=== PATIENT | female | born 1960 | race Caucasian/White ===

== ENCOUNTER 2025-03-24 12:48 | Outpatient (AMB) | payer MEDICAID, SELFPAY ==
--- OUTSIDE RECORDS SUMMARY | 2025-03-20 16:03 | XMS_ITS | Encounter Summary ---
Author Organization [facility] Address [address] [place] [address] Phone Care Team Providers Care Director Clinical Pharmacology Name Role Phone Marck Tran MD Primary Care Provider + [phone] Reason for Referral * MRI/CAT Scan - Closed Specialty Diagnoses / Procedures Referred By Alhaji carl Referred To Contact Radiology Diagnoses Status post abdominal aortic aneurysm repair Venous aneurysm Procedures CT Angio Abdomen/Pelvis SC CT ANGIO ABD&PLVIS CNTRST MTRL W/WO Travis Jack MD Phone: tel: fax: mailto:[email or web address] Referral ID Status Reason Start Date Expiration Date Visits Re quested Visits Authorized [id number] Closed 03/06/2025 03/06/2026 1 1 Reason for Visit * MRI/CAT Scan - Closed Specialty Diagnoses / Procedures Referred By Alhaji carl Referred To Contact Radiology Diagnoses Status post abdominal aortic aneurysm repair Venous aneurysm Procedures CT Angio Abdomen/Pelvis SC CT ANGIO ABD&PLVIS CNTRST MTRL W/WO MANJULAT Travis Marvin MD Phone: tel: fax: mailto:[email or web address] Referral ID Status Reason Start Date Expiration Date Visits Re quested Visits Authorized [id number] Closed 03/06/2025 03/06/2026 1 1 Encounter Details Date Type Department Care Team (Latest Contact Info) Description 03/20/2025 4:03 PM EDT - 03/20/2025 11:59 PM EDT Hospital Encounter [facility], Ct Scan - [address] [address] Travis Malhotra MD [address] [place] [phone] [email or web address] Discharge Disposition: Home or Self Care Social History Tobacco Use Types Packs/Day Years Used Date Smoking Tobacco: Never Assessed Education Answer Date Recorded Are you interested in more education? Not on mendez e 09/29/2022 Are you concerned about learning? Not on file 09/29/2022 No 09/29/2022 No 09/29/2022 Digital Access Answer Date Recorded No 10/28/2022 No 10/28/2022 No 10/28/2022 Reliable internet access at home? Not on file 10/28/2022 Device with a working camera? Not on file Intimate Partner Violence Answer Date R ecorded Are you denied basic needs s uch as food, clothing, or medical care? No 01/12/2025 In the past 12 months have y ou been in a relationship with a person who hurts, threatens, or tries to control you? No 01/12/2025 Are you denied basic needs s uch as food, clothing, or medical care? No 01/12/2025 In the past 12 months have y ou been in a relationship with a person who hurts, threatens, or tries to control you? No 01/12/2025 Comments Unknown Sex and Gender Information Value Date Recorded Sex Assigned at Female 04/29/2022 4:27 PM EST Legal Sex Female 9:45 PM EDT Gender Identity Female 04/29/2022 4:27 PM EST Sexual Orientation Straight 04/29/2022 4: 27 PM EST documented as of this encounter Plan of Treatment Upcoming Encounters Date Type Department Care Team (Late st Contact Info) Description 2025 11:15 AM EST Telemedicine - audio only [facility] V[facility] Surgery [address] [place] [address] Travis Malhotra MD [address] [place] [phone] [email or web address] [email or web address] Results Name Type Priority Associated Diagnoses Date /Time CT Angio Abdomen/Pelvis Imaging Routine Status post abdominal aortic aneurysm repair Venous aneurysm 03/20/2025 5:02 PM EDT Scheduled Orders Name Type Priority Associated Diagnoses Orde r Schedule CT Angio Abdomen/Pelvis Imaging Routine Status post abdominal aortic aneurysm repair Venous aneurysm As Needed for 1 Occurrences starting 03/20/2025 until 03/20/2025 documented as of this encounter Visit Diagnoses Diagnosis Status post abdominal aortic aneurysm repair Other postprocedural status Venous aneurysm documented in this encounter Administered Medications Inactive Administered Medications - up to 3 most recent administrations Medication Order MAR Action Action Date Dose Rate Site iohexoL (OMNIPAQUE-350) 350 mg iodine/mL solution 25-125 mL 25-125 mL, Intravenous, Once as needed, pre procedure/treatment, Starting on Sun03/20/25 at 1702, For 1 dose, Procedural Contrast/Med Active Now, Each mL contains 755 mg of iohexol equivalent to 350 mg of organic iodine. Given 03/20/2025 5:03 PM EDT 100 mL documented in this encounter Care Teams Director Clinical Pharmacology Relationship Specialty Start Date End Date Marck Tran MD [address] [place] [phone] PCP - General Family Medicine 01/15/19 documented as of this encounter Additional Source Comments The information contained in this document represents components of the legal health record. It is not the complete legal health record.[facility]
--- NOTE | 2025-03-24 13:05 | A.OFFVIS_ITS ---
Intake Visit Reasons: Nephrolithiasis Intake Note: patient presents today for: new pt nephrolithiasis urology medications: none blood thinners: none CT done: 01/08/25 Portable Track Crew Chief Required: No Accompanied by: Self / Same As Patient Allergies No Known Allergies Allergy (Verified 03/24/25 13:07) HPI Comments Details: Joseline is a pleasant female. She is a patient of Dr. Tran. She is seen for the following urologic conditions. - nephrolithiasis Review follow-up CT scan Right stone has passed Small stone left side Dietary advice given to stop nuts and almond milk Vitamin B6 Nephrolithiasis Presentation to [facility] ER 01/26 Distal right ureteric stone Associated UTI Review of Systems Const Denies chills and Denies fever(s) Card Reports no additional complaints and Denies syncope Resp Denies cough GI Denies abdominal pain and Denies heartburn Reports as per HPI and Denies change in libido Neuro Denies syncope Psych Denies change in libido Endo Denies change in libido Physical Exam Const General: cooperative, healthy appearing, comfortable and no acute distress Orientation/consciousness: patient oriented x3 HEENT Face and sinus: Yes normal facial exam Mouth: moist mucous membranes Neck Neck: Yes normal visual inspection, Yes full ROM and Yes trachea midline Chest Chest palpation & inspection: normal inspection of the chest Resp Effort & Inspection: normal respiratory effort, able to speak in complete sentences and no respiratory distress GI Inspection: Yes normal to inspection Back/Spine/Pelvis Cervical Spine: normal cervical lordosis Thoracic/Lumbar Spine: thoracic and lumbar spine normal to inspection Skin General skin exam: no rashes or lesions noted Neuro General: patient oriented x3, gait normal, tone normal and moves all extremities Extrem General: Yes normal to inspection and Yes capillary refill normal Results AMB Urinalysis, Automated UA Leukoctes 0 Renetta/uL Last Edit by CHRISTY Meade on 03/24/25 13:19 UA Nitrite Last Edit by CHRISTY Meade on 03/24/25 13:19 UA Urobilinogen 0.2 mg/dL Last Edit by CHRISTY Meade on 03/24/25 13:1 9 UA Protein 0 mg/dL Last Edit by CHRISTY Meade on 03/24/25 13:19 UA pH 6.5 Last Edit by CHRISTY Meade on 03/24/25 13:19 UA Blood 10 Darrel/uL Last Edit by CHRISTY Meade on 03/24/25 13:19 UA Specific [place] 1.010 Last Edit by CHRISTY Meade on 03/24/25 13: 19 UA Ketone Last Edit by CHRISTY Meade on 03/24/25 13:19 UA Bilirubin 0 mg/dL Last Edit by CHRISTY Meade on 03/24/25 13:19 UA Glucose 0 mg/dL Last Edit by CHRISTY Meade on 03/24/25 13:19 Results Reviewed Results Reviewed: Laboratory Last Values Urine pH (Auto) 6.5 03/24/25 13:18 Specific [place] (Auto) 1.010 03/24/25 13:18 Urine Protein (Auto) 0 mg/dL 03/24/25 13:18 Glucose (UA)(Auto) 0 mg/dL 03/24/25 13:18 Urine Blood (Auto) 10 Darrel/uL 03/24/25 13:18 Urine Bilirubin (Auto) 0 mg/dL 03/24/25 13:18 Urine Urobilinogen (Auto) 0.2 mg/dL 03/24/25 13:18 Leukocyte Esterase (Auto) 0 Renetta/uL 03/24/25 13:18 Assessment & Plan Assessment & Plan (1) Nephrolithiasis: Code(s): N20.0 - Calculus of kidney Category: Medical Plan Vitamin B6 Six-month follow-up image Orders: Orders US renal BI 6 Months N20.0 - Calculus of kidney AMB Urinalysis Automated Today Z13.9 - Encounter for screening, unspecified Medications: New pyridoxine (vitamin B6) 50 mg PO DAILY 90 tabs 1RF 90 days N20.0 - Calculus of kidney Patient Instructions: This note is constructed using voice recognition software. While every effort has been made to ensure accuracy transition teacher errors may have been included. Imaging studies, laboratory and physical exam results were discussed and reviewed in detail. No major barriers to patient understanding were identified. An opportunity to ask questions regarding the treatment plan was provided. All questions were answered. The patient expressed understanding and agreement with the above treatment plan. The patient is aware they should contact our office by phone for worsening of their current condition or the appearance of new urologic symptoms. Compliance is encouraged with any medications and followup testing that is ordered. It is a privilege to participate in the urologic care of your patient. If you have any questions or concerns regarding treatment for the above conditions, or other urologic issues, please do not hesitate to contact me. The office telephone contact is [phone]. Sincerely, Dr Dane Muniz MD, [facility] - Urology Compassionate Specialist Care for the Genitourinary System Coding Level of Care Code New Pt Level 3 (19865) Diagnoses Nephrolithiasis N20.0
--- OUTSIDE RECORDS SUMMARY | 2025-03-24 16:23 | XMS_ITS | Encounter Summary ---
Author Organization [facility] Address [address] [place] [address] Phone Care Team Providers Care Splitting Machine Operator Helper Name Role Phone Marck Tran MD Primary Care Provider + [phone] Encounter Details Date Type Department Care Team (Late st Contact Info) Description 02/23/2025 Procedure Pass [facility], Ct Scan - [address] [address] Social History Tobacco Use Types Packs/Day Years [...] 11:15 AM EST Telemedicine - audio only [facility] Vascular Surgery [address] [place] [address] Travis Malhotra MD [address] [place] [address] [email or web address] documented as of this encounter Visit Diagnoses Not on filedocumented in this encounter Care Teams Splitting Machine Operator Helper Relationship Specialty Start Date End Date Marck Tran MD [address] [place] [id number] PCP - General Family Medicine 01/15/19 documented as of this encounter Additional Source Comments The information contained in this document represents components of the legal health record. It is not the complete legal health record.[facility]
--- OUTSIDE RECORDS SUMMARY | 2025-03-24 16:23 | XMS_ITS | Encounter Summary ---
Author Organization [facility] Address [address] [place] [address] Phone Care Team Providers Care Orchestra Leader Name Role Phone Marck Tran MD Primary Care Provider + [phone] Encounter Details Date Type Department Care Team (Late st Contact Info) Description 01/08/2025 Procedure Pass [facility], Ct Scan - [address] [address] Social History Tobacco Use Types Packs/Day Years [...] PM EST documented as of this encounter Functional Status * Calculated C-SSRS Risk Score (Lifetime/Recent) Answer Date of Assessment Author No Risk Indicated 01/08/2025 3:40 PM EDT Tayler Rea RN * [place] Suicide Severity Rating Scale (Screener/Recent Self-Report) Question Answer Date of Assessment Author 1. Wish to be (Past 1 Month) No 025 3:40 PM EDT Tayler Rea RN 2. Non-Specific Active Suici larry Thoughts (Past 1 Month) No 01/08/2025 3:40 PM EDT Tayler Rea RN 6. Suicidal Behavior (Lifetime) No 3:40 PM EDT Tayler Rea RN documented as of this encounter Plan of Treatment Upcoming Encounters Date Type Department Care Team (Late st Contact Info) Description 2025 11:15 AM EST Telemedicine - audio only [facility] Vascular Surgery [address] [place] [address] Travis Malhotra MD [address] [place] [address] [email or web address] documented as of this encounter Visit Diagnoses Not on filedocumented in this encounter Care Teams Orchestra Leader Relationship Specialty Start Date End Date Marck Tran MD [address] [place] [phone] PCP - General Family Medicine 01/15/19 documented as of this encounter Additional Source Comments The information contained in this document represents components of the legal health record. It is not the complete legal health record.[facility]
--- OUTSIDE RECORDS SUMMARY | 2025-03-24 16:23 | XMS_ITS | Clinical Summary ---
Author Organization [facility] Address [address] [place] [address] [place] [phone] Phone Care Team Providers Care Industrial Commercial Groundskeeper Name Role Phone Marck Tran MD Primary Care Provider [phone] Allergies Active Allergy Reactions Criticality Noted Date Comments Sulfa (Sulfonamide Antibiotics) 12/2024 Medications No known medications Active Problems Problem Noted Date Diagnosed Date Sacroiliitis, not elsewhere classified 9 Encounters Date Type Department Care Team Description 03/20/2025 4:03 PM EDT - 03/20/2025 11:59 PM EDT Hospital Encounter [address] [address] Travis Malhotra MD Discharge Disposition: Home or Self Care 02/23/2025 Procedure Pass [address] [address] 02/23/2025 Orders Only [facility] [address] [place] [phone] Fanny Ann Status post abdominal aortic aneurysm repair (Primary Dx); Venous aneurysm 02/23/2025 Orders Only [facility] [address] [place] [phone] Fanny Ann 02/13/2025 3:45 PM EDT Office Visit [facility] [address] [place] [phone] Travis Malhotra MD Venous aneurysm (Primary Dx) 01/12/2025 6:37 PM EDT - 01/12/2025 11:34 PM EDT Emergency [facility] [address] [place] [address] Discharge Disposition: Left Without Being Seen 01/08/2025 7:24 PM EDT - 01/09/2025 1:33 AM EDT Emergency [facility] [address] [place] [address] Parker Wilson MD Discharge Disposition: Left Against Medical Advice 01/08/2025 Procedure Pass [facility], Ct Scan - [facility] [address] [place] [address] from Last 3 Months Social History Tobacco Use Types Packs/Day Years [...] Orientation Straight 04/29/2022 4: 27 PM EST Last Filed Vital Signs Vital Sign Reading Time Taken Comments Blood Pressure 168/78 02/13/2025 3:34 PM EDT Pulse 75 02/13/2025 3:34 PM EDT Temperature 36.3 C (97.3 F) 01/12/2025 6:46 PM EDT Respiratory Rate 18 01/12/2025 6:46 PM EDT Oxygen Saturation 98% 01/12/2025 6:46 PM EDT Inhaled Oxygen Concentration - - Weight 72.6 kg (160 lb) 01/12/2025 6:46 PM EDT Height 172.7 cm (5' 8 ) 01/12/2025 6:46 PM EDT Body Mass Index 24.33 01/12/2025 6:46 PM EDT Plan of Treatment Upcoming Encounters Date Type Department Care Team (Late st Contact Info) Description 2025 11:15 AM EST Telemedicine - audio only [facility] [address] [place] [address] Travis Malhotra MD [address] [place] [address] [email or web address] Health Maintenance Due Date Last Done Comments Adult Td,Tdap Booster 1962 LIPID PANEL 1962 DEPRESSION SCREENING 1974 SMOKING Hx and SMOKELESS TOB ACCO SCREENING 1975 HEPATITIS C SCREENING 1980 HIV ONE-TIME SCREENING (18-6 5 YEARS) 1980 PAP SMEAR 1983 MAMMOGRAM 2002 COLOGUARD 2007 COLONOSCOPY 2007 COLORECTAL CANCER SCREENING 2007 FIT TEST 2007 FOBT 2007 SIGMOIDOSCOPY 2007 VIRTUAL COLONOSCOPY 2007 PNEUMOCOCCAL VACCINES (50+ y ears) (1 of 1 - PCV) 2012 ZOSTER VACCINES (1 of 2) 2012 INFLUENZA VACCINE (#1) 2025 COVID-19 VACCINE (2 - 2024-2 6 season) 2025 09/14/2020 RSV VACCINE (1 - 1-dose 75+ series) 2037 HEPATITIS A VACCINES Aged Out No long er eligible based on patient's age to complete this topic HIB VACCINES Aged Out No longer eligi ble based on patient's age to complete this topic MENINGOCOCCAL VACCINES (ACWY) Aged Out No longer eligible based on patient's age to complete this topic MENINGOCOCCAL VACCINES (B) Aged Out N o longer eligible based on patient's age to complete this topic Medical Devices Not on file Procedures Procedure Name Priority Date/Time Associated Diagnosis Comments CT ABDOMEN/PELVIS WITH CONTRAST Routine 01/08/2025 9:24 PM EDT LFTS (HEPATIC PANEL) STAT 01/08/2025 7:50 PM EDT BASIC METABOLIC PANEL STAT 01/08/2025 7:50 PM EDT CBC AND DIFFERENTIAL STAT 01/08/2025 7:50 PM EDT URINE SEDIMENT STAT 01/08/2025 3:40 PM EDT URINALYSIS W/REFLEX URINE CULTURE STAT 01/08/2025 3:40 PM EDT URINE CULTURE Routine 01/08/2025 3:40 PM EDT from Last 3 Months Results * CT ABDOMEN/PELVIS WITH CONTRAST (01/08/2025 9:24 PM EDT) Anatomical Region Laterality Modality Abdomen, Pelvis Computed Tomogra phy 01/08/2025 10:2 1 PM EDT Impressions 01/08/2025 10:26 PM EDT 1. Mild to moderate right hydroureteronephrosis secondary to a 3 mm UVJ stone. Associated distal ureteritis is likely reactive. 2. Nonobstructing left nephrolithiasis. 3. 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 Narrative 01/08/2025 10:[address] ABDOMEN/PELVIS WITH CONTRAST Referring clinician's provided indication for this examination in Epic: * Abdominal pain, acute, nonlocalized TECHNIQUE: CT of the abdomen and pelvis was performed after administration of intravenous contrast using tailored dose modulation techniques. Images were reconstructed in the axial, coronal, and sagittal planes. COMPARISON: None FINDINGS: Lower Chest: No consolidation or effusions. Liver: No focal lesions. Biliary: Noninflamed gallbladder without radiopaque stones. No biliary ductal dilatation. Spleen: Normal. No splenomegaly. Pancreas: No ductal dilatation, peripancreatic fluid, or stranding. Adrenal Glands: No nodules. Kidneys/Ureters: Mild to moderate right hydroureteronephrosis secondary to a 3 mm stone at the ureterovesical junction with delayed nephrogram, trace perinephric/periureteral stranding, and distal ureteral urothelial enhancement. Nonobstructing left 3 mm lower pole renal stone. No left-sided hydronephrosis. Small right renal cysts. Bowel: Normal appendix. No bowel obstruction or wall thickening. Peritoneum/Retroperitoneum: No pneumoperitoneum or fluid. Lymph Nodes: No lymphadenopathy. Pelvic Organs/Bladder: No mass. Vessels: No abdominal aortic aneurysm. Mild atherosclerosis. 2.7 x 3.2 cm partially thrombosed saccular aneurysm arising from a branch of the SMV. Patent portal vein. Bones/Soft Tissues: No destructive osseous lesions. Small fat-containing umbilical hernia. Procedure Note Miranda Brooks MD - 01/08/2025 CT ABDOMEN/PELVIS WITH CONTRAST Referring clinician's provided indication for this examination in Epic: *Abdominal pain, acute, nonlocalized TECHNIQUE: CT of the abdomen and pelvis was performed after administrationof intravenous contrast using tailored dose modulation techniques. Imageswere reconstructed in the axial, coronal, and sagittal planes. COMPARISON: None FINDINGS: Lower Chest: No consolidation or effusions. Liver: No focal lesions. Biliary: Noninflamed gallbladder without radiopaque stones. No biliaryductal dilatation. Spleen: Normal. No splenomegaly. Pancreas: No ductal dilatation, peripancreatic fluid, or stranding. Adrenal Glands: No nodules. Kidneys/Ureters: Mild to moderate right hydroureteronephrosis secondary toa 3 mm stone at the ureterovesical junction with delayed nephrogram, traceperinephric/periureteral stranding, and distal ureteral urothelialenhancement. Nonobstructing left 3 mm lower pole renal stone. Noleft-sided hydronephrosis. Small right renal cysts. Bowel: Normal appendix. No bowel obstruction or wall thickening. Peritoneum/Retroperitoneum: No pneumoperitoneum or fluid. Lymph Nodes: No lymphadenopathy. Pelvic Organs/Bladder: No mass. Vessels: No abdominal aortic aneurysm. Mild atherosclerosis. 2.7 x 3.2 cmpartially thrombosed saccular aneurysm arising from a branch of the SMV.Patent portal vein. Bones/Soft Tissues: No destructive osseous lesions. Small fat- containingumbilical hernia. IMPRESSION: 1. Mild to moderate right hydroureteronephrosis secondary to a 3 mm UVJstone. Associated distal ureteritis is likely reactive. 2. Nonobstructing left nephrolithiasis. 3. Partially thrombosed 3 cm saccular aneurysm arising from a branch ofthe SMV. Saray Rodgers PA-C IMG CT ABD/PELVIS Final Result * LFTs (hepatic panel) (01/08/2025 7:50 PM EDT) ALKALINE PHOSPHATASE 59 39 - 117 U/L [facility] TOTAL BILIRUBIN 0.7 0.0 - 1.2 mg/dL [facility] DIRECT BILIRUBIN 0.2 0.0 - 0.2 mg/dL [facility] Bilirubin (Indirect) 0.5 0 - 1.5 mg/dL [facility] AST 23 0 - 37 U/L [facility] ALT 26 0 - 40 U/L [facility] TOTAL PROTEIN 7.3 6.5 - 8.0 g/dL [facility] ALBUMIN 4.4 3.9 - 4.8 g/dL [facility] GLOBULIN 2.9 1 - 4.8 g/dL [facility] A/G Ratio 1.52 1.00 - 4.80 RATIO [facility] Blood 01/08/2025 7:50 PM EDT 01/08/2025 8:22 PM EDT Saray Rodgers PA-C LAB BLOOD ORDERABLES Fi nal Result [facility] [address] [place] [address] * CBC and differential (01/08/2025 7:50 PM EDT) WBC 9.39 4.00 - 11.00 K/uL [facility] RBC 4.31 4.00 - 5.20 M/uL [facility] HGB 13.0 12.0 - 16.0 g/dL [facility] HCT 40.0 36.0 - 46.0 % [facility] PLT 229 150 - 450 K/uL [facility] MCV 92.8 80.0 - 100.0 fL [facility] MCH 30.2 27.0 - 31.0 pg [facility] MCHC 32.5 32.0 - 36.0 g/dL [facility] RDW 12.9 11.5 - 14.5 % [facility] MPV 10.1 8.4 - 12.0 fL [facility] NRBC 0.00 0.00 /100 WBCs [facility] ABSOLUTE NRBC 0.00 0.00 K/uL [facility] DIFF METHOD Auto [facility] NEUTS 66.9 48.0 - 76.0 % [facility] LYMPHS 25.0 18.0 - 41.0 % [facility] MONOS 6.3 4.0 - 11.0 % [facility] EOS 1.0 0.0 - 5.0 % [facility] BASOS 0.5 0.0 - 1.5 % [facility] Granulocytes, immature (%) 0.3 0.0 - 0.9 % [facility] ABSOLUTE NEUTS 6.28 1.92 - 7.60 K/uL [facility] ABSOLUTE LYMPHS 2.35 0.72 - 4.10 K/uL [facility] ABSOLUTE MONOS 0.59 0.16 - 1.10 K/uL [facility] ABSOLUTE EOS 0.09 0.00 - 0.50 K/uL [facility] ABSOLUTE BASOS 0.05 0.00 - 0.15 K/uL [facility] Granulocytes, immature 0.03 0.00 - 0.09 K/uL [facility] Blood 01/08/2025 7:50 PM EDT 01/08/2025 8:22 PM EDT us Saray Rodgers PA-C LAB BLOOD ORDERABLES Fi nal Result [facility] [address] [place] [address] * (ABNORMAL) Basic metabolic panel (01/08/2025 7:50 PM EDT) SODIUM 141 133 - 146 mmol/L [facility] CHLORIDE 108 96 - 108 mmol/L [facility] POTASSIUM 4.0 3.3 - 5.1 mmol/L [facility] CO2 22 21 - 35 mmol/L [facility] BUN 23(H) 6 - 19 mg/dL [facility] CREATININE 1.00 0.5 - 1.5 mg/dL [facility] GLUCOSE 88 70 - 99 mg/dL [facility] CALCIUM 9.9 8.4 - 10.3 mg/dL [facility] EGFR 64 >59 mL/min/1.7 3m2 [facility] Comment:Estimated glomerular filtration rate calculated using the CKD-EPI refit equation. ANION GAP 15 10 - 20 mmol/L [facility] Blood 01/08/2025 7:50 PM EDT 01/08/2025 8:22 PM EDT us Saray Rodgers PA-C LAB BLOOD ORDERABLES Fi nal Result [address] [address] * (ABNORMAL) Urinalysis w/reflex Urine Culture (01/08/2025 3:40 PM EDT) COLOR Yellow Yellow [facility] CLARITY Clear [facility] GLUCOSE Negative Negative [facility] BILI Negative Negative [facility] KETONES 1+(A) Negative [facility] SPECIFIC GRAVITY >1.030 1.005 - 1.030 [facility] BLOOD 2+(A) Negative [facility] PH 5.5 5.0 - 8.0 [facility] Protein-UA Negative Negative [facility] NITRITE Negative Negative [facility] Leukocyte esterase, ur Negative Negative [facility] Urine (Urine) 01/08/2025 3:4 0 PM EDT 01/08/2025 3:46 PM EDT us Merle Emerson PA-C URINE ORDERABLES Final Resu lt Performing Organization Address City/[facility]/ZIP Co de Phone Number [address] [address] * Urine Culture (01/08/2025 3:40 PM EDT) Special Requests None 01/08/2025 8:36 PM EDT [facility] Urine Culture NO GROWTH 48HRS 01/10/2025 11:01 AM EDT [facility] Urine 01/08/2025 3:40 PM EDT 01/08/2025 8:35 PM EDT us Saray Rodgers PA-C MICROBIOLOGY - GENERAL ORDERABLES Final Result Performing Organization Address [facility] Co de Phone Number [address] [address] * (ABNORMAL) Urine sediment (01/08/2025 3:40 PM EDT) WBC 5-10(A) NONE SEEN /hpf [facility] RBC 3-5(A) NONE SEEN /hpf [facility] URINE EPITHELIAL 0-4(A) NONE SEEN [facility] MUCUS Trace(A) NONE SEEN /hpf [facility] BACTERIA Trace(A) NONE SEEN /hpf [facility] CRYSTALS 2+ [facility] Comment:Calcium Oxalate 01/08/2025 3:40 PM EDT 01/08/2025 3:46 PM EDT us Merle Emerson PA-C URINE ORDERABLES Final Resu lt Performing Organization Address [facility]/ZIP Co de Phone Number [address] [phone] from Last 3 Months Insurance [facility] [address] [place] [address] [place] [address] [facility] Member Subscriber Plan / Payer ([facility]Present[facility] Name:Willamanda Joseline Relation to Subscriber:Self Name:Joseline Hannah Payer ID:[id number] Group ID:Not on file Type:Medicaid Address: [address] [address] Care Teams Industrial Commercial Groundskeeper Relationship Specialty Start Date End Date Marck Tran MD [address] [place] [id number] PCP - General Family Medicine 8/14/19 Additional Source Comments The information contained in this document represents components of the legal health record. It is not the complete legal health record.[facility]
== END 2025-03-24 14:07 | disposition home or self-care (01) ==
LOC: HO.HUSH 12:49
PROVIDERS: PCP Family Medicine; Visit Provider Urology
DX: Z13.9 Encounter for screening, unspecified (principal); N20.0 Calculus of kidney
CPT/HCPCS: 99203

== ENCOUNTER → 2025-03-24 12:48 | Outpatient (BNVA) | payer MEDICAID, SELFPAY | PROVIDERS: PCP Family Medicine; Visit Provider Urology | DX: N20.0 Calculus of kidney (principal) | CPT/HCPCS: 81003; 99202 ==